=== PATIENT | female | born 1970 | race Hispanic/Latino ===

== ENCOUNTER → 2021-09-11 | Day surgery (SDC) | payer BC ==
[~2021-09-11] MED LIST: BUPIVACAINE HC 0.75% PF 10ML VIAL INJ ONE; CELEXA20 MG PO; FENTANYL CITRATE/PF 100MCG/2 ML INJ ONE; GABAPENTIN100 MG PO; LIPITOR10 MG PO; MIDAZOLAM HCL 2 MG/2 ML VIAL ONE; ZESTRIL10 MG PO; ZYRTEC-D TABLE1 EACH PO
[2021-09-11 09:30] VITALS: BP 130/74
== END | disposition home or self-care (01) ==
LOC: OR 06:42
PROVIDERS: ATTEND Specialist
DX: S83.222A Peripheral tear of medial meniscus, current injury, left knee, initial encounter (principal); S83.282A Other tear of lateral meniscus, current injury, left knee, initial encounter; S83.512A Sprain of anterior cruciate ligament of left knee, initial encounter; M17.0 Bilateral primary osteoarthritis of knee; M94.262 Chondromalacia, left knee; I10 Essential (primary) hypertension; X58.XXXA Exposure to other specified factors, initial encounter; Z01.810 Encounter for preprocedural cardiovascular examination; Z01.812 Encounter for preprocedural laboratory examination; Z20.822 Contact with and (suspected) exposure to COVID-19; Z79.899 Other long term (current) drug therapy
CPT/HCPCS: 29880; 81025; 93005; J0690; J2250; J3010; U0002

== ENCOUNTER 2021-10-30 16:57 | Outpatient (RCR) | payer BC ==
[~2021-10-30 16:57] MED LIST changes: -BUPIVACAINE HC 0.75% PF 10ML VIAL INJ ONE; -FENTANYL CITRATE/PF 100MCG/2 ML INJ ONE; -MIDAZOLAM HCL 2 MG/2 ML VIAL ONE
== END 2021-11-03 ==
LOC: PT 16:57
PROVIDERS: ATTEND Specialist
DX: S83.222A Peripheral tear of medial meniscus, current injury, left knee, initial encounter (principal)
CPT/HCPCS: 97139

== ENCOUNTER 2021-11-08 15:00 | Outpatient (RCR) | payer BC | END 2021-12-04 | LOC: PT 15:00 | PROVIDERS: ATTEND Specialist | DX: S83.262A Peripheral tear of lateral meniscus, current injury, left knee, initial encounter (principal) ==